=== PATIENT | female | born 1970 | race Caucasian/White ===

== ENCOUNTER 2022-06-02 17:37 | Emergency (ER) | payer MEDICAID | END 2022-06-02 19:35 | disposition home or self-care (01) | LOC: ER1 17:37 | DX: C56.9 Malignant neoplasm of unspecified ovary (principal) | CPT/HCPCS: 99283 ==

== ENCOUNTER → 2022-06-02 | Outpatient (CLI) | payer MEDICAID | LOC: KOH-I 16:28 | DX: R10.0 Acute abdomen (principal) | CPT/HCPCS: 74176 ==